=== PATIENT | male | born 1985 | race Caucasian/White ===

== ENCOUNTER 2022-02-20 07:06 | Emergency (ER) | payer BC ==
[~2022-02-20 07:06] MED LIST: IBUPROFEN600 MG PO
[2022-02-20 07:47] LABS: HEMOGLOBIN 13.3 gm/dl (14.0-17.5); RED BLOOD COUNT 4.39 M/UL (4.20-5.50); WHITE BLOOD COUNT 10.4 K/UL (4.5-11.0)
[2022-02-20 08:15] LABS: BUN/CREATININE RATIO 15 (0-10)
[2022-02-20] MEDS ORDERED: FLOMAX0.4 MG PO (09:30)
[2022-02-20] MEDS ORDERED: HYDROCODON-ACE1 EAC4 PO (09:32)
== END 2022-02-20 10:03 | disposition home or self-care (01) ==
LOC: ER1 07:06
PROVIDERS: Nurse Practitioner
DX: N13.2 Hydronephrosis with renal and ureteral calculous obstruction (principal); Z88.0 Allergy status to penicillin; Z88.2 Allergy status to sulfonamides
CPT/HCPCS: 80053; 81001; 82550; 82553; 83605; 83690; 83874; 85025; 87086; 96374; 96375; 99284; J1885; J2270; J2405; Q9967